=== PATIENT | female | born 1945 | race Caucasian/White ===

== ENCOUNTER → 2017-04-09 | Outpatient (CLI) | payer MEDICARE ==
[~2017-04-09] MED LIST: ESCITALOPRAM OX10 MG PO; LEVOTHYROXINE25 MCG PO; LIPITOR20 MG PO; NORVASC PO; PREMPRO PO; PROPRANOLOL HCL80 M1 PO; SODIUM BICARBO650 MG PO
--- NOTE | ~2017-04-09 | MY11 ---
[facility] A Service of [facility] RADIOLOGY TEXT RESULTS PATIENT: KAREN GEORGE LOCATION: [facility] : 47 UNIT #: [id number] AGE: [address]: Loan Vera MD SEX: F ORDER DR: [id number] [address] [address] [id number] O MR#: [id number] Acc #: [id number] NAME: KAREN GEORGE : 1945 SEX: F STUDY DATE/TIME: 04/09/2017 9:18 UNIT: [facility] ROOM: STUDY DESCRIPTION: MY Mammogram Screening Dig Mendel Attending Physician: Loan Vera M.D. Referring Physician: Loan Vera M.D. Ordering Physician: Loan Vera M.D. Primary Care Physician: Loan Vera M.D. MEDICAL IMAGING REPORT This report is preliminary unless electronic signature is present. EXAM Digital screening mammogram 04/09/2017 HISTORY 71-year-old woman no risk elevation. Annual screen. COMPARISON Mammograms date to 12/14/2005 with most recent 01/14/2016. FINDINGS Digital imaging of each breast was completed utilizing a two-view examination of each breast in craniocaudal and mediolateral-oblique projections. Review and interpretation of digital mammograms include a second review in conjunction with FDA-approved CAD device. There is a normal parenchymal presentation bilaterally consistent with the patient's age. There are no breast masses imaged and no parenchymal asymmetry is visualized. There are no suspicious microcalcifications and I see no focal architectural disturbance. IMPRESSION Negative screening digital mammogram. One-year followup recommended. Patients over the age of 40 are entered into a reminder system with target due date for the next mammogram. A result letter will also be sent to the patient. BIRADS: 1 Negative Dictated by... [facility] A Service [facility] RADIOLOGY TEXT RESULTS PATIENT: KAREN GEORGE LOCATION: [facility] : 47 UNIT #: [id number] AGE: [address]: Loan Vera MD SEX: F ORDER DR: Asael Dover M.D. THIS IS AN ELECTRONICALLY VERIFIED REPORT Asael Dover M.D. at 04/09/2017 11:54 AM CHEMA/brendan TD: 04/09/2017 11:21 JOB #: [id number] MEDICAL IMAGING REPORT Page 1 of 1
== END | disposition home or self-care (01) ==
LOC: SMAM 08:17
DX: Z12.31 Encounter for screening mammogram for malignant neoplasm of breast (principal)
CPT/HCPCS: G0202